=== PATIENT | male | born 1970 | race Caucasian/White ===

== ENCOUNTER → 2022-09-03 | Outpatient (CLI) | payer MEDICAID ==
[~2022-09-03] VITALS: Ht 182.9 cm; Wt 113.7 kg
[~2022-09-03] MED LIST: ADAL40SY SQ; AMLO-250 PO; CLN.2T PO; DIAZ5TAB49 PO; ESCI10TA PO; HYDR-3820 PO; HYDR50TA6 PO; HYOS-20 PO; LOSA100T57 PO; NORT25CA PO; OMEP10CA5 PO; POTA-51 PO
== END | disposition home or self-care (01) ==
LOC: PREOP 05:42
PROVIDERS: ATTEND Otolaryngology Otolaryngology/Facial Plastic Surgery
DX: Z01.818 Encounter for other preprocedural examination (principal)

== ENCOUNTER 2022-09-05 06:01 | Day surgery (SDC) | payer MEDICAID ==
[2022-09-05] VITALS (8 sets, daily range): BP systolic 122–141; BP diastolic 79–107
[~2022-09-05] VITALS: Ht 182 cm; Wt 113.7 kg
[2022-09-05 06:42] LABS: BASOPHILS # (AUTO) 0.1 10^3/uL (0.0-0.1); BASOPHILS % (AUTO) 1 % (0-10); EOSINOPHILS # (AUTO) 0.1 10^3/uL (0.0-0.3); EOSINOPHILS % (AUTO) 2 % (0-10); HEMATOCRIT 46 % (40-54); HEMOGLOBIN 15.9 g/dL (13.3-17.7); LYMPHOCYTES # (AUTO) 2.1 10^3/uL (1.0-4.0); LYMPHOCYTES % (AUTO) 34 % (12-44); MEAN CORPUSCULAR HEMOGLOBIN 31 pg (25-34); MEAN CORPUSCULAR HGB CONC 35 g/dL (32-36); MEAN CORPUSCULAR VOLUME 88 fL (80-99); MEAN PLATELET VOLUME 8.6 fL (9.0-12.2); MONOCYTES # (AUTO) 0.6 10^3/uL (0.0-1.0); MONOCYTES % (AUTO) 10 % (0-12); NEUTROPHILS # (AUTO) 3.2 10^3/uL (1.8-7.8); NEUTROPHILS % (AUTO) 52 % (42-75); PLATELET COUNT 257 10^3/uL (130-400); WHITE BLOOD COUNT 6.2 10^3/uL (4.3-11.0)
[2022-09-05] MEDS ORDERED: ONDANSETRON 4 MG/2 ML (SDV) Z0FRAN IV ONE (06:45)
[2022-09-05] MEDS ORDERED: ONDANSETRON 4 MG/2 ML (SDV) Z0FRAN ONE ×2 (06:45→06:57)
[2022-09-05] MEDS ORDERED: SCOPOLAMINE 1.5 MG (TRANSDERM-SCOP) PATCH TOP ONE (06:45)
[2022-09-05] MEDS ORDERED: FAMOTIDINE 20MG/2ML IV (PEPCID) ONE (06:45)
[2022-09-05] MEDS ORDERED: FAMOTIDINE 20MG/2ML IV (PEPCID) IV ONE (06:45)
[2022-09-05] MEDS ORDERED: SCOPOLAMINE 1.5 MG (TRANSDERM-SCOP) PATCH ONE (06:45)
[2022-09-05] MEDS: LACTATED RINGERS 1,000 ML IV PRN ×2 (06:49→08:46)
[2022-09-05 06:50] LABS: POTASSIUM 3.8 MMOL/L (3.6-5.0)
[2022-09-05 06:52] LABS: CALCIUM 9.7 MG/DL (8.5-10.1)
[2022-09-05 06:56] LABS: CREATININE SERUM 1.01 MG/DL (0.60-1.30)
[2022-09-05] MEDS ORDERED: proPOfol 200 MG/20 ML (DIPRIVAN) VIAL IV ONE (06:57)
[2022-09-05] MEDS ORDERED: MIDAZOLAM 2 MG/2 ML (VERSED) VIAL ONE (06:57)
[2022-09-05] MEDS ORDERED: LIDOCAINE PF 2% 5 ML (XYLOCAINE) VIAL ONE (06:57)
[2022-09-05] MEDS ORDERED: fentaNYL INJ 100 MCG/2 ML AMP ONE ×2 (06:57→08:45)
[2022-09-05] MEDS ORDERED: ROCURONIUM 10 MG/ML 5 ML SYRINGE IV ONE (06:57)
--- NOTE | 2022-09-05 07:00 | Progress Note-Pre Operative ---
Pre-Operative Progress Note Date of Available H&P: Sep 05, 2022 Date H&P Reviewed: Sep 05, 2022 Time H&P Reviewed: 06:30 History & Physical: H&P Reviewed, Patient Examed, No changes noted Changes from last HP none Pre-Operative Diagnosis: Left Submandibular Duct Stone JULISA BAKER MD Sep 05, 2022 07:00
--- NOTE | 2022-09-05 07:01 | Progress Note-Post Operative ---
Post-Operative Progess Note Surgeon (s)/Sweater Designer (s) Surgeon JULISA BAKER MD Sweater Designer n/a Pre-Operative Diagnosis Left Submandibular Duct Stone Post-Operative Diagnosis same Post-Op Procedure Note Date of Procedure: Sep 05, 2022 Name of Procedure Performed: Complicated Intraoral REmoval of Left Submandibular Duct Stone Description & Findings Description and Findings: n/a Anesthesia Type get Estimated Blood Loss minimal Packing none. Specimen(s) collected/removed left submandibular duct stone JULISA BAKER MD Sep 05, 2022 07:01
[2022-09-05] MEDS ORDERED: LIDOCAINE/EPI 2% 1:200,00 (XYLOCAINE) 10 ML VIAL ONE (07:04)
[2022-09-05] MEDS ORDERED: MUPIROCIN 2% OINT 22 GM (BACTROBAN) TUBE ONE (07:04)
[2022-09-05] MEDS ORDERED: ACETAMINOPHEN 325 MG TABLET PO PRN (07:15)
[2022-09-05] MEDS ORDERED: SEVOFLURANE (ULTANE) 15 ML INHAL SOLN ONE (09:05)
[2022-09-05] MEDS ORDERED: ONDANSETRON 4 MG/2 ML (SDV) Z0FRAN IVP PRN (09:15)
[2022-09-05] MEDS ORDERED: morphine INJ 10 MG/ML 1ML (SYR OR VIAL) IVP ONE (09:15)
[2022-09-05] MEDS ORDERED: PROMETHAZINE INJ 25 MG/ML (PHENERGAN) AMP IVP ONE (09:15)
--- NOTE | 2022-09-05 13:02 | Anesthesia-General Post-Op ---
General Patient Condition Mental Status/LOC: Same as Preop Cardiovascular: Satisfactory Nausea/Vomiting: Absent Respiratory: Satisfactory Pain: Controlled Complications: Absent Post Op Complications Complications None Follow Up Care/Instructions Patient Instructions None needed. Anesthesia/Patient Condition Patient Condition Patient is doing well, no complaints, stable vital signs, no apparent adverse anesthesia problems. No complications reported per nursing. KELSEA JALLOH CRNA Sep 05, 2022 13:02
== END 2022-09-05 10:30 | disposition home or self-care (01) ==
LOC: SDC 06:01
PROVIDERS: ATTEND Otolaryngology Otolaryngology/Facial Plastic Surgery
DX: K11.20 Sialoadenitis, unspecified (principal); K11.5 Sialolithiasis
CPT/HCPCS: 36415; 80048; 85025; 87081; 93005